=== PATIENT | female | born 1980 | race Hispanic/Latino ===

== ENCOUNTER 2021-04-08 16:33 | Emergency (ER) | payer SELFPAY ==
[2021-04-08 17:12] LABS: #Lymphocytes 1.4 thou/uL (1.20-3.40); #Monocytes 0.4 thou/uL (0.11-0.59); #Neutrophils 4.4 thou/uL (1.40-6.50); %Basophils 0.4 % (0.0-1.0); %Eosinophils 0.7 % (0.0-10.0); %Lymphocytes 22.5 % (21.0-51.0); %Monocytes 6.8 % (0.0-10.0); %Neutrophils 69.6 % (42.0-75.0); Hemoglobin 16.5 g/dL (12.0-16.0); Mean Corpuscular HGB CONC 34.5 g/dL (32.0-36.0); Mean Corpuscular Hemoglobin 32.2 pg (27.0-31.0); Mean Corpuscular Volume 93.2 fL (78.0-98.0); Mean Platelet Volume 8.3 fL (7.4-10.4); Platelet Count 228 thou/uL (130-400); RBC Distribution Width 12.1 % (11.5-14.5); Red Blood Cell (RBC) Count 5.13 mill/uL (4.20-5.40); White Blood Cell (WBC) Count 6.4 thou/uL (4.8-10.8)
[2021-04-08 17:39] LABS: ALT (SGPT) 21 U/L (8-55); AST (SGOT) 19 U/L (5-34); Albumin 3.6 g/dL (3.5-5.0); Alkaline Phosphatase 69 U/L (40-110); Anion Gap 12 mmol/L (10-20); BUN (Urea Nitrogen) 10 mg/dL (7.0-18.7); Bilirubin, Total 0.2 mg/dL (0.2-1.2); Calc. Creatinine Clearance 0 mL/min (70-130); Calcium 8.9 mg/dL (7.8-10.44); Carbon Dioxide 24 mmol/L (22-29); Chloride 103 mmol/L (98-107); Globulin 4.2 g/dL (2.4-3.5); Glucose 93 mg/dL (70-105); Potassium 4.3 mmol/L (3.5-5.1); Protein, Total 7.8 g/dL (6.0-8.3); Sodium 135 mmol/L (136-145)
[2021-04-08] MEDS ORDERED: Ketorolac Tromethamine 30 MG/ML VIAL ONE (18:12)
[2021-04-08] MEDS ORDERED: methylPREDNISolone Sod Succ/PF 125 MG/2 ML VIAL ONE (18:12)
[2021-04-08 18:20] LABS: BHCG - Serum Negative (NEGATIVE); Pregs Control Background? CLEAR/WHITE (CLR/WHITE); Pregs Control Bar Appear? YES (CONTROL BAR)
== END 2021-04-08 20:16 ==
LOC: ERS 16:33
DX: U07.1 COVID-19 (principal); I45.10 Unspecified right bundle-branch block; R00.0 Tachycardia, unspecified; F17.210 Nicotine dependence, cigarettes, uncomplicated
CPT/HCPCS: 71045; 80053; 83880; 84484; 84703; 85025; 93005; 96374; 96375; J1885; J2930

== ENCOUNTER 2021-04-15 20:52 | Inpatient (IN) | payer OTHER, SELFPAY ==
[~2021-04-15 20:52] MED LIST: Iopamidol-370 76% 500 ML 1 ML ONE
[2021-04-15] MEDS ORDERED: Acetaminophen 500 MG TAB ONE (21:27)
[2021-04-15] MEDS ORDERED: Dexamethasone 10 MG/ML VIAL ONE (21:27)
[2021-04-15] MEDS ORDERED: Albuterol 200 PUFF (6.7GM INHALER) ONE (21:44)
[2021-04-15 21:55] LABS: BHCG - Serum Negative (NEGATIVE); Pregs Control Background? CLEAR/WHITE (CLR/WHITE); Pregs Control Bar Appear? YES (CONTROL BAR)
[2021-04-15 21:58] LABS: #Eosinphils 0.1 thou/uL (0.0-0.7); #Monocytes 0.3 thou/uL (0.11-0.59); %Basophils 0.9 % (0.0-1.0); %Eosinophils 1.8 % (0.0-10.0); %Lymphocytes 36.8 % (21.0-51.0); %Monocytes 4.7 % (0.0-10.0); %Neutrophils 55.8 % (42.0-75.0); Hemoglobin 16.7 g/dL (12.0-16.0); Mean Corpuscular HGB CONC 32.5 g/dL (32.0-36.0); Mean Corpuscular Hemoglobin 30.7 pg (27.0-31.0); Mean Corpuscular Volume 94.3 fL (78.0-98.0); Mean Platelet Volume 7.5 fL (7.4-10.4); Platelet Count 295 thou/uL (130-400); RBC Distribution Width 12.5 % (11.5-14.5); Red Blood Cell (RBC) Count 5.46 mill/uL (4.20-5.40); White Blood Cell (WBC) Count 5.3 thou/uL (4.8-10.8)
[2021-04-15 22:08] LABS: ALT (SGPT) 43 U/L (8-55); AST (SGOT) 53 U/L (5-34); Albumin 3.7 g/dL (3.5-5.0); Alkaline Phosphatase 96 U/L (40-110); Anion Gap 12 mmol/L (10-20); BUN (Urea Nitrogen) 13 mg/dL (7.0-18.7); Bilirubin, Total 0.5 mg/dL (0.2-1.2); Calc. Creatinine Clearance 0 mL/min (70-130); Calcium 8.7 mg/dL (7.8-10.44); Carbon Dioxide 29 mmol/L (22-29); Chloride 101 mmol/L (98-107); Globulin 3.9 g/dL (2.4-3.5); Glucose 99 mg/dL (70-105); Potassium 4.2 mmol/L (3.5-5.1); Protein, Total 7.6 g/dL (6.0-8.3); Sodium 138 mmol/L (136-145)
[2021-04-16] MEDS: Enoxaparin Sodium 40 MG/0.4 ML SYRINGE SC SCH ×2 (02:39→12:07)
[2021-04-16 02:47] VITALS: BMI 39.6
[2021-04-16 03:09] LABS: SARS-CoV-2 NAA Rapid Test DETECTED (NotDetected)
[2021-04-16] MEDS: Ascorbic Acid 500 mg Chewable Tablet PO SCH (09:08)
[2021-04-16] MEDS: Cholecalciferol (Vitamin D3) 400 UNITS TAB PO SCH (09:08)
[2021-04-16] MEDS: Zinc Sulfate 220 MG CAP PO SCH (09:08)
[2021-04-16] MEDS: Pantoprazole 40 MG VIAL IVP SCH (09:09)
[2021-04-16] MEDS: guaiFENesin ER 600 MG TAB PO SCH ×2 (09:09→20:55)
[2021-04-16] MEDS: Dexamethasone 10 MG/ML VIAL SLOW IVP SCH (09:16)
[2021-04-16] MEDS ORDERED: hydrALAZINE 25 MG TAB PO PRN (12:48)
[2021-04-16] MEDS: Benzonatate 100 MG CAP PO PRN ×2 (16:29→20:55)
[2021-04-17] MEDS: Enoxaparin Sodium 40 MG/0.4 ML SYRINGE SC SCH ×2 (00:22→12:27)
[2021-04-17] MEDS ORDERED: BARICITINIB 2 MG TAB PO SCH (09:00)
[2021-04-17] MEDS: Dexamethasone 10 MG/ML VIAL SLOW IVP SCH (09:15)
[2021-04-17] MEDS: guaiFENesin ER 600 MG TAB PO SCH ×2 (09:15→21:04)
[2021-04-17] MEDS: Zinc Sulfate 220 MG CAP PO SCH (09:15)
[2021-04-17] MEDS: Cholecalciferol (Vitamin D3) 400 UNITS TAB PO SCH (09:15)
[2021-04-17] MEDS: Benzonatate 100 MG CAP PO PRN ×2 (09:15→13:00)
[2021-04-17] MEDS: Ascorbic Acid 500 mg Chewable Tablet PO SCH (09:15)
[2021-04-17] MEDS: Pantoprazole 40 MG VIAL IVP SCH (09:16)
[2021-04-18] MEDS: Enoxaparin Sodium 40 MG/0.4 ML SYRINGE SC SCH ×2 (00:25→13:54)
[2021-04-18] MEDS: Ascorbic Acid 500 mg Chewable Tablet PO SCH (08:32)
[2021-04-18] MEDS: guaiFENesin ER 600 MG TAB PO SCH ×2 (08:32→20:07)
[2021-04-18] MEDS: Cholecalciferol (Vitamin D3) 400 UNITS TAB PO SCH (08:32)
[2021-04-18] MEDS: Zinc Sulfate 220 MG CAP PO SCH (08:33)
[2021-04-18] MEDS: Benzonatate 100 MG CAP PO PRN (08:33)
[2021-04-18] MEDS: Pantoprazole 40 MG VIAL IVP SCH (08:33)
[2021-04-18] MEDS: Dexamethasone 10 MG/ML VIAL SLOW IVP SCH (09:12)
[2021-04-19] MEDS: Enoxaparin Sodium 40 MG/0.4 ML SYRINGE SC SCH ×2 (00:08→13:21)
[2021-04-19] MEDS: Ascorbic Acid 500 mg Chewable Tablet PO SCH (08:27)
[2021-04-19] MEDS: Zinc Sulfate 220 MG CAP PO SCH (08:28)
[2021-04-19] MEDS: Cholecalciferol (Vitamin D3) 400 UNITS TAB PO SCH (08:28)
[2021-04-19] MEDS: guaiFENesin ER 600 MG TAB PO SCH ×2 (08:28→20:11)
[2021-04-19] MEDS: Dexamethasone 10 MG/ML VIAL SLOW IVP SCH (08:29)
[2021-04-19] MEDS: Benzonatate 100 MG CAP PO PRN (08:30)
[2021-04-20] MEDS: Enoxaparin Sodium 40 MG/0.4 ML SYRINGE SC SCH ×2 (00:13→12:38)
[2021-04-20 08:42] VITALS: BP 116/80; TEMP 98.3
[2021-04-20] MEDS: Ascorbic Acid 500 mg Chewable Tablet PO SCH (08:43)
[2021-04-20] MEDS: Zinc Sulfate 220 MG CAP PO SCH (08:43)
[2021-04-20] MEDS: guaiFENesin ER 600 MG TAB PO SCH (08:43)
[2021-04-20] MEDS: Dexamethasone 10 MG/ML VIAL SLOW IVP SCH (08:43)
[2021-04-20] MEDS: Benzonatate 100 MG CAP PO PRN (08:44)
[2021-04-20] MEDS: Cholecalciferol (Vitamin D3) 400 UNITS TAB PO SCH (08:44)
[2021-04-20 10:41] LABS: Anion Gap 15 mmol/L (10-20); BUN (Urea Nitrogen) 20 mg/dL (7.0-18.7); CRP (Inflammatory) 2.36 mg/dL (= or < 0.5); Calc. Creatinine Clearance 170 mL/min (70-130); Calcium 8.9 mg/dL (7.8-10.44); Carbon Dioxide 27 mmol/L (22-29); Chloride 100 mmol/L (98-107); Glucose 94 mg/dL (70-105); Potassium 4.1 mmol/L (3.5-5.1); Sodium 138 mmol/L (136-145)
[2021-04-20 11:07] LABS: Eosinophils 2 % (0-10); Hemoglobin 15.9 g/dL (12.0-16.0); Lymphocytes 19 % (21-51); MDiff Complete? YES; Mean Corpuscular HGB CONC 31.9 g/dL (32.0-36.0); Mean Corpuscular Hemoglobin 29.9 pg (27.0-31.0); Mean Corpuscular Volume 93.7 fL (78.0-98.0); Mean Platelet Volume 7.6 fL (7.4-10.4); Monocytes 5 % (0-10); Myelocyte 3 % (0-0); Neutrophil 71 % (42-75); Platelet Count 390 thou/uL (130-400); Platelet Morphology Comment Appears Adequate; RBC Distribution Width 12.2 % (11.5-14.5); Red Blood Cell (RBC) Count 5.31 mill/uL (4.20-5.40); White Blood Cell (WBC) Count 14.3 thou/uL (4.8-10.8)
== END 2021-04-20 14:30 | DRG 177 ==
LOC: ERS 20:52 → EEVIPCON 23:50 → T4-A 23:50
PROVIDERS: ADMIT Student in an Organized Health Care Education/Training Program; ATTEND Internal Medicine
PROC: 8E0ZXY6 Isolation (ICD-10-PCS; principal; 2021-04-15)
PROC: XW0DXM6 Introduction of Baricitinib into Mouth and Pharynx, External Approach, New Technology Group 6 (ICD-10-PCS; 2021-04-15)
PROC: 3E0333Z Introduction of Anti-inflammatory into Peripheral Vein, Percutaneous Approach (ICD-10-PCS; 2021-04-15)
DX: U07.1 COVID-19 (principal); J12.82 Pneumonia due to coronavirus disease 2019; J96.01 Acute respiratory failure with hypoxia; I10 Essential (primary) hypertension; F20.9 Schizophrenia, unspecified; F31.9 Bipolar disorder, unspecified; F17.210 Nicotine dependence, cigarettes, uncomplicated; Z90.49 Acquired absence of other specified parts of digestive tract
CPT/HCPCS: 36415; 71045; 71275; 80048; 80053; 82728; 84484; 84703; 85025; 85379; 86140; 93005; 96374; C9113; J1100; J1650; Q9967; U0002